=== PATIENT | female | born 1955 | race Asian ===

== ENCOUNTER → 2017-03-12 | Outpatient (CLI) | payer OTHER ==
--- NOTE | ~2017-03-12 | CR184 ---
[facility] A Service of [facility] & [facility] RADIOLOGY TEXT RESULTS PATIENT: MIGNON COHEN LOCATION: [facility] : 55 UNIT #: [id number] AGE: [address]: SONA RASHID APRN SEX: F ORDER DR: [id number] [facility]. [place], [place] [address] [id number] O MR#: [id number] Acc #: [id number] NAME: MIGNON COHEN : 1955 SEX: F STUDY DATE/TIME: 03/12/2017 11:56 UNIT: [facility] ROOM: STUDY DESCRIPTION: CR Lumbar Spine Min 4 Views Attending Physician: Sona Rashid A.P.R.N. Referring Physician: Sona Rashid A.P.R.N. Ordering Physician: Sona Rashid A.P.R.N. Primary Care Physician: [facility] MEDICAL IMAGING REPORT This report is preliminary unless electronic signature is present EXAM Lumbar spine series HISTORY Low back pain especially with flexion. Symptoms for the past 8 years. TECHNIQUE Five views of the lumbar spine were obtained including oblique views. FINDINGS Lumbar straightening is noted. Mild degenerative changes are seen at T12-L1, L1-2 and L2-3 with small osteophytes but preservation of disc space height. At L3-4, the disc is collapsed. Reactive endplate changes are seen on both sides of the disc. Anterior and posterior osteophytes are noted. There is a mild grade 1 retrolisthesis of L3 on L4. Moderate posterior facet degenerative changes are seen at this level as well. At L4-5, there is mild loss of disc space height involving the posterior aspect of the disc. There is a very slight degenerative retrolisthesis across L4-5. There is moderate bilateral facet hypertrophy. At L5-S1, the disc is collapsed with reactive endplate changes and moderate bilateral facet disease. Oblique views show no pars defects. IMPRESSION Severe degenerative disc disease as described above at L3-4 and L5-S1 with mild degenerative changes seen at the other lumbar discs. No acute bony abnormalities are noted. Dictated by... [facility] A Service of [facility] & [facility] RADIOLOGY TEXT RESULTS PATIENT: MIGNON COHEN LOCATION: [facility] #: [id number] : 55 UNIT #: [id number] AGE: [address]: SONA RASHID APRN SEX: F ORDER DR: Tucker Cuevas M.D. THIS IS AN ELECTRONICALLY VERIFIED REPORT Tucker Cuevas M.D. at 03/13/2017 4:32 PM COLT/susan TD: 03/13/2017 12:13 JOB #: [id number] MEDICAL IMAGING REPORT Page 1 of 1 COPY
== END | disposition home or self-care (01) ==
LOC: CRAD 11:31
DX: M54.5 Low back pain (principal); M51.36 Other intervertebral disc degeneration, lumbar region; M51.37 Other intervertebral disc degeneration, lumbosacral region; M47.896 Other spondylosis, lumbar region
CPT/HCPCS: 72110